=== PATIENT | female | born 1965 | race Hispanic/Latino ===

== ENCOUNTER 2016-11-27 11:57 | Emergency (ER) | payer MEDICAID ==
[2016-11-27 12:23] VITALS: RESP 16; TEMP 98.2
[2016-11-27 13:12] VITALS: BP 143/86; O2SAT 96
[2016-11-27 13:15] VITALS: PULSE 90
[2016-11-27 13:19] LABS: HEMATOCRIT 40.8 % (34.0-47.0); MEAN CORPUSCULAR HEMOGLOBIN 33.3 pg (27.0-31.0); MEAN CORPUSCULAR HGB CONC 33.3 g/dL (33.0-37.0); RED CELL DISTRIBUTION WIDTH 15.4 % (11.5-14.5); WHITE BLOOD COUNT 7.2 K/uL (4.8-10.8)
[2016-11-27 13:20] LABS: MEAN CELL VOLUME 100.2 fl (81.0-99.0)
--- NOTE | 2016-11-27 14:28 | ED PDOC ---
HPI: Chest Pain Time Seen by Provider: 11/27/16 12:24 Chief Complaint (Nursing): Chest Pain Chief Complaint (Provider): Chest pain, resolved History Per: Patient History/Exam Limitations: no limitations Onset/Duration Of Symptoms: Mins Current Symptoms Are (Timing): Gone Now Additional Complaint(s): Pt states she has been under a lot of stress lately. Pt states she has had several people in her family/friends recently pass and she has a 7 year old. Pt states she was at her PMD for routine visit and she was having chest pain with SOB. PT states it felt like a panic attack except she normally does not have chest pain. Pt states she now feels better. Past Medical History Reviewed: Historical Data, Nursing Documentation, Vital Signs Vital Signs: Last Vital Signs Temp 98.2 F 11/27/16 12:18 Pulse 83 11/27/16 13:11 Resp 16 11/27/16 13:11 BP 143/86 11/27/16 13:11 Pulse Ox 96 11/27/16 13:11 - Medical History PMH: Anxiety, HTN, Rheumatoid Arthritis - Surgical History Surgical History: (x1) - Family History Family History: States: No Known Family Hx - Living Arrangements Living Arrangements: With Family - Social History Current smoker - smoking cessation education provided: No Alcohol: None Drugs: Denies - Allergies Allergies/Adverse Reactions: Allergies Allergy/AdvReac Type Severity Reaction Status Date / Time No Known Allergies Allergy Unverified 01/29/13 11:35 Review of Systems ROS Statement: Except As Marked, All Systems Reviewed And Found Negative Cardiovascular: Positive for: Chest Pain Psych: Positive for: Anxiety Physical Exam - Reviewed Nursing Documentation Reviewed: Yes Vital Signs Reviewed: Yes - Physical Exam Appears: Positive for: Well, Non-toxic, No Acute Distress Head Exam: Positive for: ATRAUMATIC, NORMAL INSPECTION, NORMOCEPHALIC Skin: Positive for: Normal Color, Warm, DRY Eye Exam: Positive for: Normal appearance ENT: Positive for: Normal ENT Inspection Neck: Positive for: Normal, Painless ROM Cardiovascular/Chest: Positive for: Regular Rate, Rhythm Respiratory: Positive for: CNT, Normal Breath Sounds Gastrointestinal/Abdominal: Positive for: Normal Exam, Bowel Sounds, Soft Back: Positive for: Normal Inspection Extremity: Positive for: Normal ROM Neurologic/Psych: Positive for: Alert, Oriented - Laboratory Results Result Diagrams: 11/27/16 13:00 11/27/16 13:39 - ECG O2 Sat by Pulse Oximetry: 96 Disposition - Clinical Impression Clinical Impression: Anxiety - Patient ED Disposition Is Patient to be Admitted: No Counseled Patient/Family Regarding: Diagnosis, Need For Followup - Disposition Disposition: Routine/Home Disposition Time: 14:30 Condition: GOOD Additional Instructions: Please follow-up with PMD. Instructions: Anxiety (ED)
[2016-11-27 14:38] LABS: ALB/GLOB RATIO 1.2 (1.0-2.1); ALKALINE PHOSPHATASE 69 U/L (38-126); ALT/SGPT 6 U/L (9-52); AST/SGOT 62 U/L (14-36); BILIRUBIN,TOTAL 2.1 mg/dl (0.2-1.3); BLOOD UREA NITROGEN 6 mg/dl (7-17); CALCIUM 9.3 mg/dL (8.4-10.2); CARBON DIOXIDE 18 mmol/L (22-30); CHLORIDE 109 mmol/L (98-107); GFR AFRICAN-AMERICAN > 60; GLUCOSE,RANDOM 99 mg/dL (65-105); SODIUM 141 mmol/l (132-148); TOTAL PROTEIN 8.5 G/DL (6.3-8.2)
[2016-11-27 14:40] LABS: POTASSIUM 3.9 MMOL/L (3.6-5.0)
--- NOTE | 2016-11-27 14:57 | RAD ---
HISTORY: chest pain COMPARISON: Comparison chest 03/16/2016. FINDINGS: LUNGS: Suspect minor bibasilar atelectasis. Questionable small biapical bleb changes. PLEURA: No significant pleural effusion identified, no pneumothorax apparent. CARDIOVASCULAR: Heart size is borderline enlarged. OSSEOUS STRUCTURES: No significant abnormalities. VISUALIZED UPPER ABDOMEN: Normal. OTHER FINDINGS: None. IMPRESSION: Suspect mild bibasilar atelectasis and biapical bleb changes.
--- NOTE | 2016-11-28 20:29 | CARD ---
APPROVED REPORT EKG Measurement Heart [id number] 154P51 [id number] <Conclusion> Normal sinus rhythm Normal ECG
== END 2016-11-27 14:53 | disposition home or self-care (01) ==
LOC: H.ER 11:57
DX: R07.9 Chest pain, unspecified (principal); F41.9 Anxiety disorder, unspecified

== ENCOUNTER 2017-06-12 04:38 | Emergency (ER) | payer MEDICAID ==
[2017-06-12] MEDS ORDERED: HYDROmorphone 0.5 mg/0.5 ml ISec ONE (05:51)
[2017-06-12 05:55] VITALS: BMI 25.6
[2017-06-12] MEDS ORDERED: Sodium Chloride 0.9% 1,000 ML IV STA (05:55)
[2017-06-12] MEDS ORDERED: HYDROmorphone 0.5 mg/0.5 ml ISec IVP STA ×2 (05:55→06:59)
--- NOTE | 2017-06-12 06:15 | ED PDOC ---
HPI: Abdomen Time Seen by Provider: 06/12/17 05:10 Chief Complaint (Nursing): Chest Pain Chief Complaint (Provider): Epigastric Pain History Per: Patient History/Exam Limitations: no limitations Onset/Duration Of Symptoms: Days (x 4) Additional Complaint(s): Patient with history of anxiety, chronic back pain, and opiate use presents to the ED complaining of epigastric pain for the past 4 days with associated non bloody non bilious vomiting multiple times per day. Patient denies fever, chills , or chest pain. She states her bowels are normal. Patient is concerned because her left arm became numb today but has resolved. She is perseverating over pain medication and states she can't use percocet because of vomiting. PMD: None Provided Past Medical History Reviewed: Historical Data, Nursing Documentation, Vital Signs Vital Signs: Last Vital Signs Temp 98.4 F 06/12/17 06:08 Pulse 87 06/12/17 06:08 Resp 17 06/12/17 06:08 BP 167/108 H 06/12/17 06:08 Pulse Ox 98 06/12/17 06:19 - Medical History PMH: Anxiety, Back Problems, HTN, Rheumatoid Arthritis - Surgical History Surgical History: (x1) - Family History Family History: States: Unknown Family Hx - Social History Drugs: Opiates - Allergies Allergies/Adverse Reactions: Allergies Allergy/AdvReac Type Severity Reaction Status Date / Time No Known Allergies Allergy Unverified 01/29/13 11:35 Review of Systems ROS Statement: Except As Marked, All Systems Reviewed And Found Negative Constitutional: Negative for: Fever, Chills Cardiovascular: Negative for: Chest Pain Gastrointestinal: Positive for: Nausea, Vomiting, Abdominal Pain (epigastric) Physical Exam - Reviewed Nursing Documentation Reviewed: Yes Vital Signs Reviewed: Yes - Physical Exam Appears: Positive for: Non-toxic, No Acute Distress Head Exam: Positive for: ATRAUMATIC, NORMAL INSPECTION, NORMOCEPHALIC Skin: Positive for: Normal Color, Warm, Dry Eye Exam: Positive for: Normal appearance, EOMI, PERRL. Negative for: Nystagmus ENT: Positive for: Normal ENT Inspection Neck: Positive for: Normal, Painless ROM, Supple Cardiovascular/Chest: Positive for: Regular Rate, Rhythm. Negative for: Edema, Murmur Respiratory: Positive for: Normal Breath Sounds. Negative for: Wheezing, Respiratory Distress Gastrointestinal/Abdominal: Positive for: Normal Exam, Bowel Sounds, Soft, Tenderness (mild epigastric tenderness) Back: Positive for: Normal Inspection Extremity: Positive for: Normal ROM. Negative for: Pedal Edema, Deformity Neurologic/Psych: Positive for: Alert, Oriented, Mood/Affect (anxious). Negative for: Motor/Sensory Deficits - Laboratory Results Result Diagrams: 06/12/17 06:01 - ECG O2 Sat by Pulse Oximetry: 98 (RA) Pulse Ox Interpretation: Normal Medical Decision Making Medical Decision Making: Time: 5:10 Initial Impression: gastritis Initial Plan: --EKG --BMP --Urine Drug Screen --LFT --Troponin I --CBC --Dilaudid --Pantoprazole IV --Ondansetron IV 700 Pt. still having epigastric pain, will give another dose of 0.5mg of dilaudid and order u/s sono. Will endorse to day team, Dr. Snowden. Scribe Attestation: Documented by Vernon Burgess, acting as a scribe for Dr. Moises Palomares MD. Provider Scribe Attestation: All medical record entries made by the Scribe were at my direction and personally dictated by me. I have reviewed the chart and agree that the record accurately reflects my personal performance of the history, physical exam, medical decision making, and the department course for this patient. I have also personally directed, reviewed, and agree with the discharge instructions and disposition. Disposition - Clinical Impression Clinical Impression: Epigastric pain - Patient ED Disposition Is Patient to be Admitted: Transfer of Care - Disposition Disposition: Transfer of Care Disposition Time: 07:00 Condition: STABLE Forms: [employer] (Palestinian) Patient Signed Over To: Yina Snowden Handoff Comments: pending u/s and reassessment
[2017-06-12 06:24] LABS: ALB/GLOB RATIO 1.5 (1.0-2.1); ALKALINE PHOSPHATASE 103 U/L (38-126); ALT/SGPT 41 U/L (9-52); AST/SGOT 51 U/L (14-36); BILIRUBIN,TOTAL 0.6 mg/dl (0.2-1.3); BLOOD UREA NITROGEN 10 mg/dl (7-17); CALCIUM 9.7 mg/dL (8.4-10.2); CARBON DIOXIDE 24 mmol/L (22-30); CHLORIDE 104 mmol/L (98-107); GFR AFRICAN-AMERICAN > 60; GLUCOSE,RANDOM 100 mg/dL (65-105); POTASSIUM 3.8 MMOL/L (3.6-5.0); SODIUM 144 mmol/l (132-148); TOTAL PROTEIN 8.2 G/DL (6.3-8.2)
[2017-06-12 06:34] LABS: BASO # 0.1 K/uL (0.0-0.2); BASO % 1.4 % (0.0-2.0); EOS # 0.2 K/uL (0.0-0.7); EOS % 2.1 % (0.0-4.0); HEMATOCRIT 40.1 % (34.0-47.0); LYMPH # 3.1 K/uL (1.0-4.3); LYMPH % 35.9 % (20.0-40.0); MEAN CELL VOLUME 101.7 fl (81.0-99.0); MEAN CORPUSCULAR HEMOGLOBIN 34.1 pg (27.0-31.0); MEAN CORPUSCULAR HGB CONC 33.5 g/dL (33.0-37.0); MEAN PLATELET VOLUME 8.7 fl (7.2-11.7); MONO # 0.6 K/uL (0.0-0.8); MONO % 7.1 % (0.0-10.0); NEUT # 4.6 K/uL (1.8-7.0); NEUT % 53.5 % (50.0-75.0); NRBC % 0.1 % (0.0-0.0); RED CELL DISTRIBUTION WIDTH 15.9 % (11.5-14.5); WHITE BLOOD COUNT 8.5 K/uL (4.8-10.8)
--- NOTE | 2017-06-12 07:21 | ED PDOC ---
- Laboratory Results Result Diagrams: 06/12/17 06:01 06/12/17 06:01 - ECG O2 Sat by Pulse Oximetry: 98 (RA) Medical Decision Making Medical Decision Makin Patient endorsed to me by Dr. Palomares. Pending US and labs. 0757 Gallbladder US 1005 -Patient tolerated PO and will be referred outpt. lipase normal. pt feels better. pt has history of htn, blood pressure elevated here. pt encouraged to follow up w her primary doctor for better bp control as well as follow up iwht GI doctor as referred to her for findings in the [place]. Patient is stable and will be discharge home. Disposition Counseled Patient/Family Regarding: Studies Performed, Diagnosis, Need For Followup - Clinical Impression Clinical Impression: Epigastric pain - POA Present On Arrival: None - Disposition Referrals: [facility] [Outside] Shaik Rooney MD [Primary Care Provider] - Barak Morgan MD, PhD [Staff Provider] - Disposition: Routine/Home Disposition Time: 10:10 Condition: IMPROVED Additional Instructions: follow up with your primary doctor in 1-2 days return to the ED with any worsening or concerning symptoms Prescriptions: Famotidine [Pepcid] 20 mg PO BID PRN #10 tab PRN Reason: Heartburn Instructions: Epigastric Pain (ED) Forms: [facility] (Icelandic)
[2017-06-12 07:34] VITALS: RESP 16
--- NOTE | 2017-06-12 09:21 | US ---
HISTORY: epig pain COMPARISON: None. TECHNIQUE: Grayscale imaging of the right upper quadrant of the abdomen. FINDINGS: LIVER: Measures 21.0 cm in length. There is mild diffuse increased echogenicity of the liver parenchyma. No mass. No intrahepatic bile duct dilatation. GALLBLADDER: The gallbladder is well distended without gallstones, wall thickening or pericholecystic fluid. The sonographic King's sign is negative. COMMON BILE DUCT: Measures 6.0 mm. No stones. No dilatation. PANCREAS: Unremarkable as visualized. No mass. No ductal dilatation. RIGHT KIDNEY: Measures 11.0 cm in length. Normal echogenicity. No calculus, mass, or hydronephrosis. AORTA: No aneurysmal dilatation. IVC: Unremarkable. OTHER FINDINGS: None . IMPRESSION: Mild hepatomegaly. Diffuse increased echogenicity in the liver may reflect hepatic steatosis however parenchymal infectious/ inflammatory etiologies cannot be entirely excluded. Clinical and laboratory correlation is advised. A preliminary report was provided by [employer].
[2017-06-12 10:55] VITALS: BP 172/108; PULSE 94; TEMP 97.9
--- NOTE | 2017-06-12 11:53 | CARD ---
APPROVED REPORT EKG Measurement Heart [id number] 170P74 [id number] <Conclusion> Normal sinus rhythm Possible Left atrial enlargement Rightward axis Prolonged QT Abnormal ECG
[2017-06-12 12:32] VITALS: O2SAT 98
--- NOTE | 2017-06-12 14:56 | RAD ---
HISTORY: COMPARISON: 11/27/2016. TECHNIQUE: Chest PA and lateral FINDINGS: LINES AND TUBES: None. LUNG AND PLEURA: The lungs are hyperinflated and there is peribronchial thickening with chronic changes in both lungs. There is no focal consolidation. HEART AND MEDIASTINUM: The heart is not enlarged. The hilar and mediastinal contours are within normal limits. SKELETAL STRUCTURES: The bony structures are within normal limits for the patient's age. VISUALIZED UPPER ABDOMEN: Normal. OTHER FINDINGS: None. IMPRESSION: No active pulmonary disease. COPD.
== END 2017-06-12 10:57 | disposition home or self-care (01) ==
LOC: H.ER 04:38
DX: R10.13 Epigastric pain (principal); R07.89 Other chest pain; F41.9 Anxiety disorder, unspecified; I10 Essential (primary) hypertension; J44.9 Chronic obstructive pulmonary disease, unspecified; K29.70 Gastritis, unspecified, without bleeding; M06.9 Rheumatoid arthritis, unspecified
CPT/HCPCS: 71020; 76705; 80048; 80076; 80324; 80345; 80346; 80349; 80353; 80358; 80361; 81025; 83690; 83992; 84484; 85025; 93005; 96374; 96375; 96376; 99283; C9113; J1170; J2405; J7040

== ENCOUNTER 2017-07-16 08:08 | Emergency (ER) | payer MEDICAID ==
[2017-07-16 08:11] VITALS: BMI 22.4
[2017-07-16 08:13] VITALS: TEMP 96.5; O2SAT 98
[2017-07-16] MEDS ORDERED: Sodium Chloride 0.9% 1,000 ML IV STA (09:53)
[2017-07-16 10:42] VITALS: BP 140/70; PULSE 78; RESP 18
--- NOTE | 2017-07-16 10:51 | ED PDOC ---
HPI: Abdomen Time Seen by Provider: 07/16/17 08:46 Chief Complaint (Nursing): Abdominal Pain Chief Complaint (Provider): Abdominal pain History Per: Patient Onset/Duration Of Symptoms: Intermittent Episodes Additional Complaint(s): 51yo female, past medical history of anxiety, presents to ED for evaluation of epigastric pain. 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 She denies any nausea, vomiting or diarrhea. Upon interview, patient states her symptoms have resolved. Past Medical History Reviewed: Historical Data, Nursing Documentation, Vital Signs Vital Signs: Last Vital Signs Temp 96.5 F L 07/16/17 08:11 Pulse 78 07/16/17 10:41 Resp 18 07/16/17 10:41 BP 140/70 07/16/17 10:41 Pulse Ox 98 07/16/17 10:41 - Medical History PMH: Anxiety, Back Problems, HTN, Rheumatoid Arthritis - Surgical History Surgical History: (x1) - Family History Family History: States: No Known Family Hx, Unknown Family Hx - Home Medications Home Medications: Ambulatory Orders Medication Instructions Recorded Acetaminophen/Oxycodone Hydr 1 tab PO TID PRN 06/12/17 [Percocet 10/325 mg Tab] Alprazolam [Xanax] 2 mg PO HS PRN 06/12/17 Famotidine [Pepcid] 20 mg PO BID PRN #10 tab 06/12/17 Prednisone [Deltasone] 20 mg PO PRN PRN 06/12/17 clonazePAM [Klonopin] 1 mg PO BID 06/12/17 - Allergies Allergies/Adverse Reactions: Allergies Allergy/AdvReac Type Severity Reaction Status Date / Time No Known Allergies Allergy Unverified 06/12/17 09:37 Review of Systems ROS Statement: Except As Marked, All Systems Reviewed And Found Negative Gastrointestinal: Positive for: Abdominal Pain. Negative for: Nausea, Vomiting , Diarrhea Physical Exam - Reviewed Nursing Documentation Reviewed: Yes Vital Signs Reviewed: Yes - Physical Exam Appears: Positive for: Well, Non-toxic, No Acute Distress Head Exam: Positive for: ATRAUMATIC Skin: Positive for: Normal Color Eye Exam: Positive for: Normal appearance Neck: Positive for: Supple Cardiovascular/Chest: Positive for: Regular Rate, Rhythm Respiratory: Positive for: Normal Breath Sounds. Negative for: Respiratory Distress Gastrointestinal/Abdominal: Positive for: Normal Exam, Soft. Negative for: Tenderness - ECG O2 Sat by Pulse Oximetry: 98 (RA) Pulse Ox Interpretation: Normal Medical Decision Making Medical Decision Making: Time: 0900 Impression: Abdominal pain Plan: -- Patient states she is feeling much better and her symptoms have resoleved. 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 -- Patient stale for discharge home. Scribe Attestation: Documented by Kelly Willis acting as a scribe for Yina Snowden MD. Provider Attestation: All medical record entries made by the Scribe were at my direction and personally dictated by me. I have reviewed the chart and agree that the record accurately reflects my personal performance of the history, physical exam, medical decision making, and the department course for this patient. I have also personally directed, reviewed, and agree with the discharge instructions and disposition. Disposition - Clinical Impression Clinical Impression: Gastritis - Disposition Referrals: [facility] [Outside] Shiva Vizcaino MD [Staff Provider] - Disposition: Routine/Home Disposition Time: 10:20 Condition: IMPROVED Additional Instructions: follow up with your egg processing supervisor in 1-2 days return to the E D with any worsening or concerning symptoms. Instructions: Gastritis (ED) Forms: [employer] (Pakistani)
== END 2017-07-16 10:44 | disposition home or self-care (01) ==
LOC: H.ER 08:08
DX: K29.70 Gastritis, unspecified, without bleeding (principal); F41.9 Anxiety disorder, unspecified; I10 Essential (primary) hypertension; M06.9 Rheumatoid arthritis, unspecified

== ENCOUNTER 2017-09-04 09:25 | Emergency (ER) | payer MEDICAID ==
[2017-09-04 09:32] VITALS: BMI 22.6
[2017-09-04 09:34] VITALS: RESP 17; TEMP 98.1; O2SAT 97
[2017-09-04 09:48] VITALS: PULSE 88
--- NOTE | 2017-09-04 09:50 | ED PDOC ---
HPI: Chest Pain Time Seen by Provider: 09/04/17 09:40 Chief Complaint (Nursing): Chest Pain History Per: Patient Onset/Duration Of Symptoms: Days (2) Current Symptoms Are (Timing): Still Present Severity: Moderate Pain Scale Rating Of: 3 Quality: Aching Exacerbating Factors: Turning, Movement, Deep Breathing Alleviating Factors: None Additional Complaint(s): Right lower chest pain worse on movement and inspiration since yesterday. denies SOB or cough. No fever. No trauma Past Medical History Vital Signs: Last Vital Signs Temp 98.1 F 09/04/17 09:32 Pulse 88 09/04/17 09:42 Resp 17 09/04/17 09:32 BP 156/97 H 09/04/17 09:32 Pulse Ox 97 09/04/17 09:51 - Medical History PMH: Anxiety, Back Problems, HTN, Rheumatoid Arthritis Other PMH: SLE - Surgical History Surgical History: (x1) - Family History Family History: States: Unknown Family Hx - Home Medications Home Medications: Ambulatory Orders Medication Instructions Recorded Acetaminophen/Oxycodone Hydr 1 tab PO TID PRN 06/12/17 [Percocet 10/325 mg Tab] Alprazolam [Xanax] 2 mg PO HS PRN 06/12/17 Famotidine [Pepcid] 20 mg PO BID PRN #10 tab 06/12/17 Prednisone [Deltasone] 20 mg PO PRN PRN 06/12/17 clonazePAM [Klonopin] 1 mg PO BID 06/12/17 Cyclobenzaprine [Cyclobenzaprine 10 mg PO TID #10 tab 09/04/17 HCl] Naproxen [Naprosyn] 500 mg PO Q12H #20 tab 09/04/17 - Allergies Allergies/Adverse Reactions: Allergies Allergy/AdvReac Type Severity Reaction Status Date / Time No Known Allergies Allergy Verified 09/04/17 09:38 Review of Systems ROS Statement: Except As Marked, All Systems Reviewed And Found Negative Cardiovascular: Positive for: Chest Pain Respiratory: Positive for: Pleuritic Pain. Negative for: Cough, Shortness of Breath Gastrointestinal: Negative for: Nausea, Vomiting, Abdominal Pain, Diarrhea Genitourinary Female: Negative for: Dysuria, Frequency Physical Exam - Reviewed Nursing Documentation Reviewed: Yes Vital Signs Reviewed: Yes - Physical Exam Appears: Positive for: Non-toxic, No Acute Distress Head Exam: Positive for: ATRAUMATIC, NORMAL INSPECTION, NORMOCEPHALIC Skin: Positive for: Normal Color, Warm, DRY Eye Exam: Positive for: EOMI, Normal appearance, PERRL ENT: Positive for: Normal ENT Inspection Neck: Positive for: Normal, Painless ROM Cardiovascular/Chest: Positive for: Regular Rate, Rhythm. Negative for: Chest Non Tender (Tenderness right lateral chest wall, reproducible) Respiratory: Positive for: CNT, Normal Breath Sounds Gastrointestinal/Abdominal: Positive for: Normal Exam, Bowel Sounds, Soft Back: Positive for: Normal Inspection Extremity: Positive for: Normal ROM Neurologic/Psych: Positive for: Alert, Oriented - Laboratory Results Result Diagrams: 09/04/17 10:11 09/04/17 10:11 - ECG O2 Sat by Pulse Oximetry: 97 Disposition - Clinical Impression Clinical Impression: Chest wall pain - Patient ED Disposition Is Patient to be Admitted: No Counseled Patient/Family Regarding: Studies Performed, Diagnosis, Need For Followup, Rx Given - Disposition Referrals: [facility] [Outside] Disposition: Routine/Home Disposition Time: 10:46 Condition: FAIR Prescriptions: Cyclobenzaprine [Cyclobenzaprine HCl] 10 mg PO TID #10 tab Naproxen [Naprosyn] 500 mg PO Q12H #20 tab Instructions: Chest Wall Pain (ED) Forms: [facility] (Portuguese)
[2017-09-04 10:18] LABS: BASO # 0.1 K/uL (0.0-0.2); BASO % 1.2 % (0.0-2.0); EOS # 0.2 K/uL (0.0-0.7); EOS % 2.8 % (0.0-4.0); HEMOGLOBIN 12.6 g/dL (12.0-16.0); LYMPH # 2.3 K/uL (1.0-4.3); LYMPH % 43.1 % (20.0-40.0); MEAN CELL VOLUME 100.6 fl (81.0-99.0); MEAN CORPUSCULAR HEMOGLOBIN 34.1 pg (27.0-31.0); MEAN CORPUSCULAR HGB CONC 33.9 g/dL (33.0-37.0); MEAN PLATELET VOLUME 8.3 fl (7.2-11.7); MONO # 0.3 K/uL (0.0-0.8); MONO % 5.3 % (0.0-10.0); NEUT # 2.5 K/uL (1.8-7.0); NEUT % 47.6 % (50.0-75.0); NRBC % 0.2 % (0.0-0.0); RBC 3.69 Mil/uL (3.80-5.20); RED CELL DISTRIBUTION WIDTH 15.4 % (11.5-14.5); WHITE BLOOD COUNT 5.4 K/uL (4.8-10.8)
[2017-09-04 10:29] LABS: ALB/GLOB RATIO 1.2 (1.0-2.1); ALBUMIN 3.7 g/dL (3.5-5.0); ALT/SGPT 29 U/L (9-52); AST/SGOT 35 U/L (14-36); BLOOD UREA NITROGEN 10 mg/dl (7-17); CALCIUM 9.1 mg/dL (8.4-10.2); GFR AFRICAN-AMERICAN > 60; GFR NON-AFRICAN AMERICAN > 60
--- NOTE | 2017-09-04 10:33 | RAD ---
HISTORY: chest pain COMPARISON: Chest radiograph dated 06/12/2017. TECHNIQUE: Chest PA and lateral FINDINGS: LUNGS: No active pulmonary disease. PLEURA: No significant pleural effusion identified. No pneumothorax apparent. CARDIOVASCULAR: Normal. OSSEOUS STRUCTURES: No significant abnormalities. VISUALIZED UPPER ABDOMEN: Normal. OTHER FINDINGS: None. IMPRESSION: No active disease.
[2017-09-04 10:56] VITALS: BP 150/88
--- NOTE | 2017-09-04 21:36 | CARD ---
APPROVED REPORT EKG Measurement Heart [id number] <Conclusion> Normal sinus rhythm Possible Left atrial enlargement Prolonged QT Abnormal ECG
== END 2017-09-04 10:55 | disposition home or self-care (01) ==
LOC: H.ER 09:25
DX: R07.89 Other chest pain (principal); I10 Essential (primary) hypertension; M06.9 Rheumatoid arthritis, unspecified; M32.9 Systemic lupus erythematosus, unspecified

== ENCOUNTER 2017-10-29 07:58 | Emergency (ER) | payer MEDICAID ==
[2017-10-29 07:58] VITALS: BMI 22.6
[2017-10-29 08:21] VITALS: RESP 18; TEMP 98.1
--- NOTE | 2017-10-29 08:33 | ED PDOC ---
HPI: Abdomen Time Seen by Provider: 10/29/17 08:12 Chief Complaint (Nursing): Chest Pain History Per: Patient Onset/Duration Of Symptoms: Days (2) Current Symptoms Are (Timing): Still Present Severity: Moderate Location Of Pain/Discomfort: RUQ Quality Of Discomfort: Sharp Associated Symptoms: denies: Fever, Nausea, Vomiting, Diarrhea, Urinary Symptoms Additional Complaint(s): RUQ abd pain since yesterady. Denies fever, nausea or vomiting. Denies cough or SOB. Past Medical History Vital Signs: Last Vital Signs Temp 98.1 F 10/29/17 08:13 Pulse 95 H 10/29/17 08:13 Resp 18 10/29/17 08:13 BP 136/99 H 10/29/17 08:13 Pulse Ox 100 10/29/17 10:40 - Medical History PMH: Anxiety, Back Problems, HTN, Rheumatoid Arthritis Other PMH: SLE - Surgical History Surgical History: (x1) - Family History Family History: States: Unknown Family Hx - Home Medications Home Medications: Ambulatory Orders Medication Instructions Recorded Acetaminophen/Oxycodone Hydr 1 tab PO TID PRN 06/12/17 [Percocet 10/325 mg Tab] Alprazolam [Xanax] 2 mg PO HS PRN 06/12/17 Famotidine [Pepcid] 20 mg PO BID PRN #10 tab 06/12/17 Prednisone [Deltasone] 20 mg PO PRN PRN 06/12/17 clonazePAM [Klonopin] 1 mg PO BID 06/12/17 Cyclobenzaprine [Cyclobenzaprine 10 mg PO TID #10 tab 09/04/17 HCl] Naproxen [Naprosyn] 500 mg PO Q12H #20 tab 09/04/17 Dicyclomine [Dicyclomine HCl] 10 mg PO Q8 #10 cap 10/29/17 Famotidine [Pepcid] 20 mg PO Q12 #20 tab 10/29/17 Ondansetron [Zofran] 4 mg PO Q8H #10 tab 10/29/17 - Allergies Allergies/Adverse Reactions: Allergies Allergy/AdvReac Type Severity Reaction Status Date / Time No Known Allergies Allergy Verified 10/29/17 08:13 Review of Systems ROS Statement: Except As Marked, All Systems Reviewed And Found Negative Gastrointestinal: Positive for: Abdominal Pain Physical Exam - Reviewed Nursing Documentation Reviewed: Yes Vital Signs Reviewed: Yes - Physical Exam Appears: Positive for: Non-toxic, No Acute Distress Head Exam: Positive for: ATRAUMATIC, NORMAL INSPECTION, NORMOCEPHALIC Skin: Positive for: Normal Color, Warm, DRY Eye Exam: Positive for: EOMI, Normal appearance, PERRL ENT: Positive for: Normal ENT Inspection Neck: Positive for: Normal, Painless ROM Cardiovascular/Chest: Positive for: Regular Rate, Rhythm Respiratory: Positive for: CNT, Normal Breath Sounds Gastrointestinal/Abdominal: Positive for: Bowel Sounds, Soft, Tenderness (RUQ tenderness) Back: Positive for: Normal Inspection. Negative for: L CVA Tenderness, R CVA Tenderness Extremity: Positive for: Normal ROM Neurologic/Psych: Positive for: Alert, Oriented - Laboratory Results Result Diagrams: 10/29/17 08:50 10/29/17 08:50 - ECG O2 Sat by Pulse Oximetry: 100 Medical Decision Making Medical Decision Making: Time: 10:05 Chest X-Ray FINDINGS: LUNGS: No active pulmonary disease. PLEURA: No significant pleural effusion identified. No pneumothorax apparent. CARDIOVASCULAR: Normal. OSSEOUS STRUCTURES: Mild multilevel degenerative spondylosis of the thoracic spine VISUALIZED UPPER ABDOMEN: Normal. OTHER FINDINGS: None. IMPRESSION: No active disease. Time: 10:14 Abdomen Limited (GB included) Ultrasound FINDINGS: LIVER: Measures 19.2 cm in length and appears otherwise unremarkable. No focal hepatic mass identified. The main portal vein appears patent with normal directional flow. No intrahepatic bile duct dilatation. GALLBLADDER: No gallstones. No gallbladder wall thickening or pericholecystic edema. Negative sonographic King's sign as assessed by the horizontal drill operator. COMMON BILE DUCT: Measures 5 mm. PANCREAS: Not well-visualized. RIGHT KIDNEY: Measures 10.9 x 4.9 x 4.2 cm. No obstructing calculus or hydronephrosis identified. AORTA: Limited visualization appears grossly unremarkable. IVC: Limited visualization appears grossly unremarkable. OTHER FINDINGS: None . IMPRESSION: Hepatomegaly. Scribe Attestation: Documented by Cristian Anderson, acting as a scribe for Kleber Maxwell MD. Disposition - Clinical Impression Clinical Impression: Gastritis - Patient ED Disposition Is Patient to be Admitted: No Counseled Patient/Family Regarding: Studies Performed, Diagnosis, Need For Followup, Rx Given - Disposition Referrals: [facility] [Outside] Disposition: Routine/Home Disposition Time: 11:02 Condition: FAIR Prescriptions: Dicyclomine [Dicyclomine HCl] 10 mg PO Q8 #10 cap Famotidine [Pepcid] 20 mg PO Q12 #20 tab Ondansetron [Zofran] 4 mg PO Q8H #10 tab Instructions: Gastritis Forms: [facility] (Beninese), [facility] ED School/Work Excuse
[2017-10-29 09:03] LABS: BASO % 0.2 % (0.0-2.0); EOS # 0.3 K/uL (0.0-0.7); EOS % 4.2 % (0.0-4.0); HEMOGLOBIN 13.2 g/dL (12.0-16.0); LYMPH # 2.9 K/uL (1.0-4.3); LYMPH % 44.4 % (20.0-40.0); MEAN CELL VOLUME 99.6 fl (81.0-99.0); MEAN CORPUSCULAR HEMOGLOBIN 34.3 pg (27.0-31.0); MEAN CORPUSCULAR HGB CONC 34.5 g/dL (33.0-37.0); MEAN PLATELET VOLUME 8.7 fl (7.2-11.7); MONO # 0.4 K/uL (0.0-0.8); MONO % 5.7 % (0.0-10.0); NEUT % 45.5 % (50.0-75.0); NRBC % 0.1 % (0.0-0.0); RBC 3.85 Mil/uL (3.80-5.20); RED CELL DISTRIBUTION WIDTH 14.3 % (11.5-14.5); WHITE BLOOD COUNT 6.6 K/uL (4.8-10.8)
[2017-10-29 09:16] LABS: ALB/GLOB RATIO 1.4 (1.0-2.1); ALBUMIN 4.2 g/dL (3.5-5.0); ALT/SGPT 40 U/L (9-52); AST/SGOT 36 U/L (14-36); BLOOD UREA NITROGEN 12 mg/dl (7-17); CALCIUM 9.6 mg/dL (8.4-10.2); GFR AFRICAN-AMERICAN > 60; GFR NON-AFRICAN AMERICAN > 60
--- NOTE | 2017-10-29 10:07 | RAD ---
HISTORY: Right-sided pain. COMPARISON: Comparison made with prior chest radiograph 09/04/2017 TECHNIQUE: Chest PA and lateral FINDINGS: LUNGS: No active pulmonary disease. PLEURA: No significant pleural effusion identified. No pneumothorax apparent. CARDIOVASCULAR: Normal. OSSEOUS STRUCTURES: Mild multilevel degenerative spondylosis of the thoracic spine VISUALIZED UPPER ABDOMEN: Normal. OTHER FINDINGS: None. IMPRESSION: No active disease.
--- NOTE | 2017-10-29 10:16 | US ---
HISTORY: RUQ pain COMPARISON: Gallbladder hepatic ultrasound performed 06/12/17 TECHNIQUE: Sonographic evaluation of the right upper quadrant of the abdomen. FINDINGS: LIVER: Measures 19.2 cm in length and appears otherwise unremarkable. No focal hepatic mass identified. The main portal vein appears patent with normal directional flow. No intrahepatic bile duct dilatation. GALLBLADDER: No gallstones. No gallbladder wall thickening or pericholecystic edema. Negative sonographic King's sign as assessed by the director pharmacy services. COMMON BILE DUCT: Measures 5 mm. PANCREAS: Not well-visualized. RIGHT KIDNEY: Measures 10.9 x 4.9 x 4.2 cm. No obstructing calculus or hydronephrosis identified. AORTA: Limited visualization appears grossly unremarkable. IVC: Limited visualization appears grossly unremarkable. OTHER FINDINGS: None . IMPRESSION: Hepatomegaly.
[2017-10-29] MEDS ORDERED: Potassium Chloride 20 mEq ER Tab PO ONE ×2 (10:59→12:16)
[2017-10-29 11:11] VITALS: O2SAT 98
[2017-10-29 12:59] VITALS: BP 168/96; PULSE 86
--- NOTE | 2017-10-29 17:57 | CARD ---
APPROVED REPORT EKG Measurement Heart [id number] <Conclusion> Normal sinus rhythm Normal ECG
== END 2017-10-29 13:13 | disposition home or self-care (01) ==
LOC: H.ER 07:58
DX: K29.70 Gastritis, unspecified, without bleeding (principal); F41.9 Anxiety disorder, unspecified; I10 Essential (primary) hypertension; M06.9 Rheumatoid arthritis, unspecified; M32.9 Systemic lupus erythematosus, unspecified; R16.0 Hepatomegaly, not elsewhere classified
CPT/HCPCS: 71046; 76705; 80053; 81025; 84484; 85025; 93005; 96374; 96375; 99283; J2405

== ENCOUNTER 2018-07-15 12:37 | Emergency (ER) | payer MEDICAID ==
[2018-07-15 12:37] VITALS: BMI 22.6
[2018-07-15 12:48] VITALS: BP 123/90; RESP 18; TEMP 97.6; O2SAT 99
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
[2018-07-15 14:12] VITALS: PULSE 89
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
--- NOTE | 2018-07-15 18:46 | CARD ---
APPROVED REPORT Date of service: 07/15/2018 EKG Measurement Heart [id number] <Conclusion> Normal sinus rhythm Prolonged QT Abnormal ECG
== END 2018-07-15 18:28 | disposition left against medical advice (07) ==
LOC: H.ER 12:37
DX: R07.81 Pleurodynia (principal); I10 Essential (primary) hypertension; M06.9 Rheumatoid arthritis, unspecified; F41.9 Anxiety disorder, unspecified